=== PATIENT | male | born 1950 | race Caucasian/White ===

== ENCOUNTER 2021-04-08 08:19 | Day surgery (SDC) | payer MEDICARE ==
[2021-04-07 10:26] LABS: BASOPHILS % (AUTO) 1 % (0-1); EOSINOPHILS % (AUTO) 2 % (1-7); LYMPHOCYTES % (AUTO) 20 % (22-44); MEAN CORPUSCULAR HEMOGLOBIN 32.5 pg (27.5-34.5); MEAN CORPUSCULAR HGB CONC 34.8 g/dL (33.2-36.2); MEAN PLATELET VOLUME 6.4 fL (7.4-10.4); MONOCYTES % (AUTO) 12 % (2-9); NEUTROPHILS % (AUTO) 66 % (42-75); PLATELET COUNT 299 x10^3/uL (130-400); RED BLOOD COUNT 4.53 x10^6/uL (4.38-5.82); RED CELL DISTRIBUTION WIDTH 12.9 % (9.4-14.8)
[2021-04-07 10:31] LABS: ALBUMIN 3.8 g/dL (3.4-5.0); ANION GAP 5 mmol/L (5-15); CALCIUM 9.2 mg/dL (8.5-10.1); CHLORIDE 102 mmol/L (98-107)
[2021-04-07 10:35] LABS: ALANINE AMINOTRANSFERASE 34 U/L (12-78); ALKALINE PHOSPHATASE 79 U/L (45-117); BILIRUBIN,TOTAL 0.5 mg/dL (0.2-1.0); CREATININE 0.73 mg/dL (0.7-1.3); TOTAL PROTEIN 7.4 g/dL (6.4-8.2)
[~2021-04-08] VITALS: Ht 190.5 cm; Wt 116.5 kg
[~2021-04-08 08:19] MED LIST: ACETAMINOPHEN 650 MG/20.3 ML UDC PO PRN; AMLO-211 PO; ASPI81TA45 PO; BISACODYL 10 MG SUPP PR PRN; BUPR300T94 PO; CARV12.52 PO; CEFAZOLIN PMX 2GM/50ML 50 ML IVPB SCH; CELE200C PO; DIPHENHYDRAMINE 25 MG CAPSULE PO PRN; EPINEPHRINE 1 MG/ML, 1ML ONE; HYDROcodone/APAP 5/325 TABLET PO PRN; KETOROLAC 30 MG/1 ML ONE; MAGNESIUM HYDROXIDE 8%, 30ML UDC PO PRN; NS + 20MEQ KCL 1,000 ML IV SCH; OLME-11 PO; ONDANSETRON 2MG/ML, 2ML IV PRN; ONDANSETRON 4 MG TABLET PO PRN; OXYcodone IR 5MG TABLET PO PRN; ROPIvacaine/PF 0.5%, 20 ML ONE; ROPIvacaine/PF 0.5%, 30 ML ONE; SENNA/DOCUSATE TABLET PO PRN; SODIUM CHLORIDE 0.9% 50 ML ONE; TRANEXAMIC ACID 100 MG/ML, 10ML ONE; VANCOMYCIN 1,000 MG ONE; ZOLPIDEM 5MG TABLET PO PRN
[2021-04-08] MEDS ORDERED: LACTATED RINGERS 1,000 ML IV SCH (09:00)
[2021-04-08] MEDS ORDERED: DOCUSATE 100 MG CAPSULE PO SCH (09:00)
[2021-04-08] MEDS ORDERED: [UNRECOGNIZED DRUG - OTHER] PO SCH (09:00)
[2021-04-08] MEDS ORDERED: CARVEDILOL 12.5 MG TABLET PO SCH (09:00)
[2021-04-08] MEDS ORDERED: GABAPENTIN 300 MG CAPSULE PO ONE (09:00)
[2021-04-08] MEDS ORDERED: ACETAMINOPHEN 500 MG TABLET PO ONE (09:00)
[2021-04-08] MEDS ORDERED: HYDROCHLOROTHIAZIDE PO SCH (09:00)
[2021-04-08] MEDS ORDERED: OLMESARTAN PO SCH (09:00)
[2021-04-08] MEDS ORDERED: TEMPLATE NON-FORMULARY MED. (Bupropion Hcl** (Bupropion Xl**) 300 MG) PO SCH (09:00)
[2021-04-08] MEDS ORDERED: AMLODIPINE 10 MG TAB PO SCH (09:00)
[2021-04-08] MEDS ORDERED: FAMOTIDINE 20 MG TABLET PO ONE (09:00)
[2021-04-08 09:03] VITALS: BP 147/91
[2021-04-08] MEDS ORDERED: FENTANYL PF 250 MCG/5ML ONE (09:07)
[2021-04-08] MEDS ORDERED: FAMOTIDINE 20 MG TABLET ONE (09:10)
[2021-04-08] MEDS ORDERED: GABAPENTIN 300 MG CAPSULE ONE (09:11)
[2021-04-08] MEDS ORDERED: CHLORHEXIDINE 15 ML UDC ONE (09:11)
[2021-04-08] MEDS ORDERED: ACETAMINOPHEN 500 MG TABLET ONE (09:11)
[2021-04-08] MEDS ORDERED: CHLORHEXIDINE 15 ML UDC PO ONE (09:30)
[2021-04-08] MEDS ORDERED: DEXAMETHASONE 4 MG/ML, 1ML ONE (09:50)
[2021-04-08] MEDS ORDERED: ONDANSETRON 2MG/ML, 2ML ONE (09:50)
[2021-04-08] MEDS ORDERED: CEFAZOLIN 1,000 MG ONE (09:50)
[2021-04-08] MEDS ORDERED: PROPOFOL 10 MG/ML, 20ML ONE (09:50)
[2021-04-08] MEDS ORDERED: GLYCOPYRROLATE 0.2MG/1ML, 5ML ONE (09:51)
[2021-04-08] MEDS ORDERED: SUCCINYLCHOLINE 20 MG/ML, 10ML ONE (09:51)
[2021-04-08] MEDS ORDERED: NEOSTIGMINE 1 MG/ML, 10ML ONE (09:51)
[2021-04-08] MEDS ORDERED: ROCURONIUM 10 MG/ML,10ML ONE (09:51)
[2021-04-08] MEDS ORDERED: METHOCARBAMOL 1,000 MG in DEXTROSE 5% 100 ML IV PRN (10:30)
[2021-04-08] MEDS ORDERED: MEPERIDINE/PF 25MG/0.5ML IVPush PRN (10:30)
[2021-04-08] MEDS ORDERED: hydrALAzine 20 MG/ML, 1ML IV PRN (10:30)
[2021-04-08] MEDS ORDERED: PROMETHAZINE 25 MG/ML, 1ML IVPush PRN (10:30)
[2021-04-08] MEDS ORDERED: ONDANSETRON 2MG/ML, 2ML IVPush PRN (10:30)
[2021-04-08] MEDS ORDERED: LABETALOL 5MG/ML, 20ML IV PRN (10:30)
[2021-04-08] MEDS ORDERED: PROMETHAZINE 25 MG SUPP PR PRN (10:30)
[2021-04-08] MEDS ORDERED: LORazepam 2 MG/ML, 1ML IVPush PRN (10:30)
[2021-04-08] MEDS ORDERED: FENTANYL PF 100 MCG/2ML ONE (11:12)
[2021-04-08] MEDS ORDERED: OXYcodone 5 MG/5 ML ORAL.SOL UDC ONE ×2 (11:12→16:13)
[2021-04-08] MEDS: FENTANYL PF 100 MCG/2ML IV PRN ×2 (11:16→11:23)
[2021-04-08] MEDS ORDERED: HYDROmorphone 1 MG/ML, 1ML INJ ONE (11:37)
[2021-04-08] MEDS: HYDROmorphone 1 MG/ML, 1ML INJ IVPush PRN ×2 (11:41→11:56)
[2021-04-08] MEDS: OXYcodone 5 MG/5 ML ORAL.SOL UDC PO PRN ×2 (11:43→16:14)
[2021-04-08] MEDS ORDERED: ASPIRIN 81 MG TABLET EC PO SCH (18:00)
[2021-04-09] MEDS ORDERED: DEXAMETHASONE 4 MG/ML, 1ML IVPush SCH (06:00)
== END 2021-04-08 18:20 | disposition home or self-care (01) ==
LOC: OUT 08:19
PROVIDERS: ATTEND Orthopaedic Surgery
DX: M16.12 Unilateral primary osteoarthritis, left hip (principal); M25.752 Osteophyte, left hip; I10 Essential (primary) hypertension; G47.33 Obstructive sleep apnea (adult) (pediatric); Z20.822 Contact with and (suspected) exposure to COVID-19; Z79.899 Other long term (current) drug therapy; Z96.641 Presence of right artificial hip joint
CPT/HCPCS: 27130; 36415; 73501; 80053; 85025; 87081; 87147; 93005; 97161; 97165; C1713; C1776; J0171; J0330; J0690; J1100; J1170; J1885; J2405; J2704; J2710; J2795; J2800; J3010; J3370; J7120; U0003; U0005; 76000